=== PATIENT | male | born 1985 | race Caucasian/White ===

== ENCOUNTER 2020-11-11 06:17 | Emergency (ER) | payer OTHER, SELFPAY ==
[2020-11-11 06:20] VITALS: BP 131/94; PULSE 99; RESP 16; TEMP 36.5; O2SAT 100
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
[2020-11-11] MEDS: NAPROXEN 500 MG TABLET PO (06:47)
[2020-11-11] MEDS: CYCLOBENZAPRINE HCL 10 MG TABLET PO (06:48)
== END 2020-11-11 07:06 | disposition home or self-care (01) ==
PROVIDERS: Emergency Provider Emergency Medicine
DX: S16.1XXA Strain of muscle, fascia and tendon at neck level, initial encounter (principal); Y35.813A Legal intervention involving manhandling, suspect injured, initial encounter
CPT/HCPCS: 99283; A9270

== ENCOUNTER 2024-08-28 00:17 | Emergency (ER) | payer OTHER, MEDICAID, SELFPAY ==
[2024-08-28] VITALS (7 sets, daily range): BP systolic 110–157; BP diastolic 80–93; PULSE 70–128; RESP 16–20; TEMP 36.6; O2SAT 95–100
--- NOTE | ~2024-08-28 | CT_ITS ---
CTA chest PE protocol Ordering provider: Rudy Price MD History: 39 years Male with . SOA . Comparison: None. Technique: CT angiogram chest was performed following timed intravenous injection of contrast. Thin s lice axial images and reformatted coronal images were obtained. Three dimensional reformatted images of the chest were also obtained using a [employer] workstation. . Automated exposure control and iterati ve reconstruction technique were employed. The dose-length product was 285.35 mGy-cm. 100 ML Omnipaqu e 350 was given IV. Findings: PULMONARY ARTERIES: No pulmonary embolus. VISUALIZED THORACIC INLET: Normal. MEDIASTINUM: Aorta/coronary arteries: The thoracic aorta is normal. Heart/other: The heart is not enlarged. Lymph nodes: No mediastinal or hilar adenopathy. LUNGS: No pulmonary nodules or masses. No infiltrates or effusions. No pneumothorax. VISUALIZED UPPER ABDOMEN: the visualized upper abdomen is normal. MUSCULOSKELETAL: Soft tissues: The superficial soft tissues are normal. Bones: Normal spine. IMPRESSION: 1. No pulmonary embolism. 2. No acute cardiopulmonary pathology. Reviewed, dictated and finalized at location A.
--- NOTE | ~2024-08-28 | XR_ITS ---
XR chest 2V Ordering provider: Beth Smith MD History: 39 years Male with . SOB, CHEST PAIN. . Comparison: None. FINDINGS: MEDIASTINUM: The cardiac silhouette is not enlarged. LUNGS: No infiltrates, effusions or pneumothorax. OTHER: No free air under the diaphragm. Postoperative changes in the left clavicle. IMPRESSION: No acute cardiopulmonary pathology. Reviewed, dictated and finalized at location A.
--- OUTSIDE RECORDS SUMMARY | 2024-08-28 00:20 | XMS_ITS | Continuity of Care Document ---
Author Organization [facility] Address [address] [place] [address] Phone Care Team Providers Care Fur Buyer Name Role Phone Mushtaq Paul PT Unavailable Unavailable Procedures Procedure Date PT Evaluation Moderate Complexity Therapeutic Activities Neuromuscular Re-Ed Therapeutic Exercise Advance Directives Directive Yes / No Effective Date File Name No Information Encounters Encounter Description Practice Location Reason(s) For Visit Diagnoses Date Provider Providers Copied on Encounter [facility], [address], [place], [place], [id number], tel:[phone] [place] No Information 5 Humberto Landin. . [facility], [address], [place], [place], [id number], tel:[phone] [place] No Information 5 Humberto Landin. . Referring Provider: Lynn Hillman, [address], [place], [address]. tel:[phone] Family History Family Member Type Diagnosis Age At Onset No Information Payers Payer name Insurance type Covered libertarian ID Authorbrada evelyn(s) [facility] [id number] CI [id number] Social History Type Description Quantity Date Captured Comments Sex Male Smoking Status No Information Chief Complaint And Reason For Visit No Information Reason For Referral Reason For Referral No Information Plan Of Treatment Date Type Action Status Goal Tobacco cessation counseling completed Goal Tobacco Cessation Counseling completed Feb-28-2025 Goal Tobacco Cessation Counseling completed History Of Present Illness Encounter Date Complaint History Of Prese nt Illness No Information Functional Status Date Functional Assessmen t No Information Instructions Date Instruction Additional Infor mation No Information Assessments Type Assessment Date No Information Patient Care Teams Name Effective Dates (start - stop) Status Members No Information
--- OUTSIDE RECORDS SUMMARY | 2024-08-28 00:20 | XMS_ITS | Continuity of Care Document ---
Author Organization [facility] Address [address] [place] [address] Phone Care Team Providers Care Testing And Regulating Technician Name Role Phone Pacheco Elizabeth PA-C Unavailable Unavailable Allergies, Adverse Reactions, Alerts Substance Reaction Status Criticality No Known Allergies Active No Inform ation Medications Medication Instructions Dosage Effective Dates (start - stop) Status Comments omeprazole 20 mg capsule,delayed release take 1 capsule by oral route every day 30 minutes to 1 hour before a meal 20 MG - Active Tums 200 mg calcium (500 mg) chewable tablet - Active Procedures Procedure Date Clavicle Xray Complete Office/outpatient visit,est, mod 2022 Clavicle Xray Complete Postop followup visit Clavicle FX ORIF Clavicle FX ORIF Office/outpatient visit,new, [facility] [place] Advance Directives Directive Yes / No Effective Date File Name No Information Encounters Encounter Description Practice Location Reason(s) For Visit Diagnoses Date Provider Providers Copied on Encounter Office/outpat ient visit,est, mod [facility], [address], [place], [id number], [place] tel:[phone] [facility] Lt Clavicle (chief complaint) Pain in left armDisp fx of shaft of left clavicle, subs for fx w routn heal 3 Clara Bergman. [address], [place], [id number] , [place]. tel:[phone] Referring Provider: Pacheco Keating, [address] [place], [address] . tel:[phone] [facility], [address] [place] [address], [id number], tel:[phone] [facility] Closed displaced fracture of shaft of left clavicle with routine healing, subsequent encounterPain in left arm 2 Hoagland Pacheco. [address] [place] [address], [id number] , . tel:[phone] Referring Provider: Pacheco Keating, [address] [place], [address] . tel:[phone] [facility], [address] [place] [address], [id number], tel:[phone] [facility] No Information 2 Chino Hernandez. [address] [place] [address], [id number] , . tel:[phone] Referring Provider: Mary Pisano, [address] [place] [address], [address] . tel:[phone] [facility], [address] [place] [address], [id number], tel:[phone] [facility] No Information 2 Hoagland Pacheco. [address] [place] [address], [id number] , . tel:[phone] Referring Provider: Mary Pisano, [address] [place] [address], [address] . tel:[phone] Office/outpat ient visit,new, mod [facility], [address] [place] [address], [id number], tel:[phone] [facility] Closed displaced fracture of shaft of left clavicle, initial encounterClosed displaced fracture of shaft of left clavicl 2 Hoagland Pacheco. [address] [place] [address], [id number] , . tel:[phone] Referring Provider: Omar Ireland, [address] [place] [address] [place], [address] . tel:[phone] Family History Family Member Type Diagnosis Age At Onset No Information Payers Payer name Insurance type Covered libertarian ID Cherri rivas(s) [facility] Sources Claims Dept [id number] Social History Type Description Quantity Date Captured Comments Alcohol Use Details Unknown Caffeine Use Details Unknown Tobacco Use Status Current non-smoker Smoking Status Never smoker Non-Smoking Tobacco Use Details : No Details Available : No Details Available Sex Male Vital Signs Date / Time: Height Weight BMI Pulse Rate Blood Pressure Temperature Respiratory Rate Body Surface Area Head Circumference Head Circ. Percentile Wt./Shimon. Percentile BMI percentile Pulse Ox Inhaled Ox 8:23 AM 68.00 in 86.183 kg (190.00 lbs) 28.8 9 kg/m eter (2) Chief Complaint And Reason For Visit From encounter dated '06/03/2022 08:30'. Lt Clavicle (chief complaint) Reason For Referral Reason For Referral No Information Plan Of Treatment Date Type Action Status Future Order: Radiology Order Cl avicle Xray Complete ([id number]), Ordered on: Ordered Future Order: Radiology Order Cl avicle Xray Complete ([id number]), Ordered on: Ordered History Of Present Illness Encounter Date Complaint History Of Prese nt Illness Lt Clavicle Functional Status Date Functional Assessmen t No Information Instructions Date Instruction Additional Infor mation No Information Assessments Type Assessment Date assessment Pain in left arm assessment Disp fx of shaft of left clavicl e, subs for fx w routn heal Patient Care Teams Name Effective Dates (start - stop) Status Members No Information
--- OUTSIDE RECORDS SUMMARY | 2024-08-28 00:20 | XMS_ITS | Continuity of Care Document ---
Author Organization [facility] Address [address] [place] [address] Phone Care Team Providers Care Marshmallow Maker Name Role Phone Dakota Grace Unavailable Unavailable Procedures Procedure Date Office/outpatient Visit, Est Office/outpatient Visit, Est Eye Exam, New Patient Advance Directives Directive Yes / No Effective Date File Name No Information Encounters Encounter Description Practice Location Reason(s) For Visit Diagnoses Date Provider Providers Copied on Encounter Office/outpat ient Visit, [facility], [address], [place], [place], [id number], [place] tel:[phone] [facility] No Information 0 Krishnasamy Dakota. [address], [address], [place]. tel:[phone] Office/outpat ient Visit, Est [facility], [address], [place], [place], [id number], [place] tel:[phone] [facility] No Information 0 Krishnasamy Dakota. [address], [place], [address], [place]. tel:[phone] [facility], [address], [place], [place], [id number], [place] tel:[phone] [facility] No Information [phone] Lesly Duncan. [address] [facility] [address], [place], [address], [place]. tel:[phone] Family History Family Member Type Diagnosis Age At Onset No Information Payers Payer name Insurance type Covered democrat ID Authoriza tion(s) No Information Social History Type Description Quantity Date Captured Comments Sex Male Smoking Status No Information Chief Complaint And Reason For Visit No Information Reason For Referral Reason For Referral No Information History Of Present Illness Encounter Date Complaint History Of Prese nt Illness No Information Functional Status Date Functional Assessmen t No Information Instructions Date Instruction Additional Infor mation No Information Assessments Type Assessment Date No Information Patient Care Teams Name Effective Dates (start - stop) Status Members No Information
--- NOTE | 2024-08-28 00:23 | ECG_ITS ---
Test Date: 2024-08-28 00:28:06 Measurements Intervals [place] Rate: 116 P: 67 AK: 138 QRS: 77 QRSD: 95 T: 32 QT: 310 QTc: 432 Interpretive Statements SINUS TACHYCARDIA INCOMPLETE RIGHT BUNDLE BRANCH BLOCK BORDERLINE ST-T WAVE ABNORMALITY- INF/LAT LEADS BASELINE ARTIFACT- I, II, III, AVR, AVL, AVF ABNORMAL ECG No previous ECG available for comparison Electronically Signed On 08-28-2024 07:31:18 CDT by Mitchel Rodríguez D.O.
[2024-08-28 00:49] LABS: Basophils Absolute Auto 0.1 K/mm3 (0.0-0.1); Basophils Percent Auto 0.5 % (0.2-1.2); Eosinophils Absolute Auto 0.5 K/mm3 (0-0.3); Hematocrit 43.7 % (42.0-52.0); Hemoglobin 14.7 g/dL (14.0-18.0); Immature Granulocyte Absolute 0.02 K/mm3 (0.00-0.031); Immature Granulocyte Percent A 0.2 % (0-0.5); Lymphocytes Absolute Auto 4.23 K/mm3 (0.9-3.2); Lymphocytes Percent Auto 44.3 % (18.3-44.2); Mean Corpuscular HGB Conc 33.6 g/dl (32-36); Mean Corpuscular Hemoglobin 30.8 pg (26-34); Mean Corpuscular Volume 91.6 fl (80-100); Mean Platelet Volume 9.5 fl (7.4-10.4); Monocytes Absolute Auto 0.7 K/mm3 (0.1-0.6); Monocytes Percent Auto 7.1 % (2.6-8.5); Neutrophils Absolute Auto 4.1 K/mm3 (1.3-6.7); Neutrophils Percent Auto 42.9 % (45.5-73.1); Platelet Count Result 258 k/mm3 (150-375); Red Blood Count 4.77 M/mm3 (4.6-6.20); Red Cell Distribution Width 12.2 % (11.5-14.5); White Blood Count 9.6 K/mm3 (4.5-10.0)
[2024-08-28 01:02] LABS: Alanine Aminotransferase 14 U/L (6-50); Albumin Level 4.8 g/dL (3.5-5.1); Alkaline Phosphatase 40 U/L (38-126); Anion Gap 13 mmol/L (4-12); Aspartate Amino Transferase 23 U/L (17-59); Bilirubin,Total 0.3 mg/dL (0.2-1.3); Blood Urea Nitrogen 15 mg/dL (9-20); Calcium 9.4 mg/dL (8.4-10.2); Carbon Dioxide 26 mmol/L (22-30); Chloride 103 mmol/L (98-107); Estimated CRCL calculation 90 ml/min; Estimated Glomerular Filt Rate > 60; Glucose 110 mg/dL (65-110); Lipase 102 U/L (23-300); Partial Thromboplastin Time 27.3 Seconds (22.3-36.8); Potassium 4.2 mmol/L (3.4-5.0); Prothrombin Time 13.3 Seconds (11.1-14.7); Sodium 142 mmol/L (137-145)
[2024-08-28 01:13] LABS: Troponin I < 0.012 ng/mL (0.000-0.034)
--- NOTE | 2024-08-28 03:35 | ECG_ITS ---
Test Date: 2024-08-28 04:07:35 Measurements Intervals [place] Rate: 78 P: 38 WI: 156 QRS: 57 QRSD: 97 T: 48 QT: 354 QTc: 405 Interpretive Statements SINUS RHYTHM INCOMPLETE RIGHT BUNDLE BRANCH BLOCK DELAYED PRECORDIAL R/S TRANSITION BASELINE ARTIFACT- I, II, AVR, AVL BORDERLINE ECG Compared to ECG 08/28/2024 00:28:06 HEART RATE HAS DECREASED Electronically Signed On 08-28-2024 07:34:48 CDT by Mitchel Rodríguez D.O.
[2024-08-28 05:22] LABS: Troponin I < 0.012 ng/mL (0.000-0.034)
--- NOTE | 2024-08-28 06:16 | ECG_ITS ---
Test Date: 2024-08-28 06:20:41 Measurements Intervals [place] Rate: 72 P: 15 KS: 136 QRS: 52 QRSD: 102 T: 43 QT: 379 QTc: 416 Interpretive Statements SINUS RHYTHM INCOMPLETE RIGHT BUNDLE BRANCH BLOCK BORDERLINE ECG Compared to ECG 08/28/2024 04:07:35 NO SIGNIFICANT CHANGE Electronically Signed On 08-28-2024 07:36:02 CDT by Mitchel Rodríguez D.O.
[2024-08-28 06:41] LABS: Troponin I < 0.012 ng/mL (0.000-0.034)
--- NOTE | 2024-08-28 07:46 | ED.GENADULT ---
HPI - General Adult General Chief complaint: Chest Pain Stated complaint: chest pain, sob Time Seen by Provider: 08/28/24 07:04 History of Present Illness HPI narrative: Patient is a 39-year-old male who presents ER with chest pain. Left lower chest with tingling in left shoulder. Sudden onset prior to arrival. Reports that is not decreased is just a very mild ache. No exertional discomfort. No pain with deep breath. Reports he has been sneezing with increased irregularity which is start causing him some pain inside the back. Patient reports symptoms began tonight after coming back to a table from bathroom where he got lightheaded but did not lose consciousness or fall to the ground. No history of heart disease. Recently taken off his Seroquel. Related Data Allergies Allergy/AdvReac Type Severity Reaction Status Date / Time No Known Allergies Allergy Verified 08/28/24 00:49 Review of Systems Review of Systems: All systems reviewed & are unremarkable except as noted in HPI and below Constitutional: Constitutional: Reports no additional constitutional complaints Cardiovascular: Cardiovascular: Reports no additional cardiovascular complaints Respiratory: Respiratory: Reports no additional respiratory complaints Gastrointestinal: Gastrointestinal: Reports no additional gastrointestinal complaints [facility] Past Medical History Medical History (Updated 08/28/24 @ 09:15 by Rudy Price MD) Healthy adult male Surgical History Surgical History (Updated 09/19/21 @ 15:04 by Danita Almanzar) No history of previous surgery Social History Social History (System 09/19/21 @ 15:04 by Danita Almanzar) Substance use type: methamphetamine Exam Narrative: GENERAL: Well-appearing, well-nourished, and in no acute distress. HEAD: Normocephalic, atraumatic. ENT: Mucous membranes moist. CHEST: Clear to auscultation. No respiratory distress. No reproducible chest pain. HEART: Regular rate and rhythm. Normal peripheral pulses. ABDOMEN: Soft, nontender, nondistended. Back: No midline tenderness T/L-spine, no reproducible musculoskeletal back pain. EXTREMITIES: Normal range of motion. No edema. SKIN: Warm, dry, no rash. NEURO: Alert and oriented x3. PSYCH: Normal mood and affect. Course Course Emergency Course: Trop negative, cta chest negative, d/c. Vital Signs Vital signs: Vital Signs Temperature 97.9 F 08/28/24 00:28 Pulse Rate 128 H 08/28/24 00:28 Respiratory Rate 17 08/28/24 00:28 Blood Pressure 157/93 H 08/28/24 00:28 Pulse Oximetry 100 08/28/24 00:28 Oxygen Delivery Room Air 08/28/24 00:28 Temperature 97.9 F 08/28/24 00:28 Pulse Rate 83 08/28/24 06:23 Respiratory Rate 20 08/28/24 06:23 Blood Pressure 127/89 08/28/24 06:23 Pulse Oximetry 98 08/28/24 06:23 Oxygen Delivery Room Air 08/28/24 03:56 Medical Decision Making Vital Signs Vital Signs: Vital Signs Temperature 97.9 F 08/28/24 00:28 Pulse Rate 128 H 08/28/24 00:28 Respiratory Rate 17 08/28/24 00:28 Blood Pressure 157/93 H 08/28/24 00:28 Pulse Oximetry 100 08/28/24 00:28 Oxygen Delivery Room Air 08/28/24 00:28 Temperature 97.9 F 08/28/24 00:28 Pulse Rate 83 08/28/24 06:23 Respiratory Rate 20 08/28/24 06:23 Blood Pressure 127/89 08/28/24 06:23 Pulse Oximetry 98 08/28/24 06:23 Oxygen Delivery Room Air 08/28/24 03:56 Lab Data 08/28/24 00:35 08/28/24 00:35 Labs: Lab Results 08/28/24 08/28/24 08/28/24 Range/Units 00:35 04:46 06:14 WBC 9.6 (4.5-10.0) K/mm3 RBC 4.77 (4.6-6.20) M/mm3 Hgb 14.7 (14.0-18.0) g/dL Hct 43.7 (42.0-52.0) % MCV 91.6 (80-100) fl MCH 30.8 (26-34) pg MCHC 33.6 (32-36) g/dl RDW 12.2 (11.5-14.5) % Plt Count 258 (150-375) k/mm3 MPV 9.5 (7.4-10.4) fl Immature Gran % (Auto) 0.2 (0-0.5) % Neut % (Auto) 42.9 L (45.5-73.1) % Lymph % (Auto) 44.3 H (18.3-44.2) % [place] % (Auto) 7.1 (2.6-8.5) % Eos % (Auto) 5.0 H (0-4.4) % Baso % (Auto) 0.5 (0.2-1.2) % Lymph # (Auto) 4.23 H (0.9-3.2) K/mm3 [place] # (Auto) 0.7 H (0.1-0.6) K/mm3 Eos # (Auto) 0.5 H (0-0.3) K/mm3 Baso # (Auto) 0.1 (0.0-0.1) K/mm3 Abs Immat Gran (auto) 0.02 (0.00-0.031) K/mm3 Absolute Neuts (auto) 4.1 (1.3-6.7) K/mm3 Absolute Nucleated RBC 0.000 (0.0-0.012) K/mm3 Nucleated RBC % 0.0 (0.0-0.2) % PT 13.3 (11.1-14.7) Seconds INR 1.0 APTT 27.3 (22.3-36.8) Seconds D-Dimer 0.49 H (<0.48) ug/mL Sodium 142 (137-145) mmol/L Potassium 4.2 (3.4-5.0) mmol/L Chloride 103 (98-107) mmol/L Carbon Dioxide 26 (22-30) mmol/L Anion Gap 13 H (4-12) mmol/L BUN 15 (9-20) mg/dL Creatinine 0.92 (0.7-1.3) mg/dL Estim Creat Clear Calc 90 ml/min Estimated GFR > 60 (59 - ) Glucose 110 (65-110) mg/dL Calcium 9.4 (8.4-10.2) mg/dL Total Bilirubin 0.3 (0.2-1.3) mg/dL AST 23 (17-59) U/L ALT 14 (6-50) U/L Alkaline Phosphatase 40 (38-126) U/L Troponin I < 0.012 < 0.012 < 0.012 (0.000-0.034) ng/mL Total Protein 8.0 (6.3-8.2) g/dL Albumin 4.8 (3.5-5.1) g/dL Lipase 102 (23-300) U/L Imaging Data Radiologist's impression: ITS Impressions Chest X-Ray 08/28/24 06:31 IMPRESSION: No acute cardiopulmonary pathology. Chest CTA 08/28/24 09:02 IMPRESSION: 1. No pulmonary embolism. 2. No acute cardiopulmonary pathology. ITS Impressions Chest X-Ray 08/28/24 06:31 IMPRESSION: No acute cardiopulmonary pathology. ECG Data EKG #1: ECG completion date: 08/28/24 ECG completion time: 04:07 EKG Interpretation: normal rate (78), sinus rhythm, no ectopy, no ST changes, normal QRS, normal QT and NL axis Discharge Plan Discharge Clinical Impression: Chest wall pain Patient Disposition: Home, Self-Care Condition: Stable Instructions: Chest Wall Pain (ED) Additional Instructions: Please return to the emergency department if you develop severe and persistent chest pain, difficulty breathing, dizziness, leg swelling or if you are coughing up blood as these can be signs of a medical emergency. Please call your doctor for a follow up appointment to determine the need for further testing. Patient Language: Italian Prescriptions: New naproxen 375 mg tablet 375 mg PO BID Qty: 14 0RF No Action cyclobenzaprine 10 mg tablet 10 mg PO BID PRN (Reason: muscle spasm) Qty: 10 0RF naproxen 500 mg tablet 500 mg PO BID Qty: 20 0RF Follow-up/Referrals: PHYSICIAN NOT ON STAFF,NONSTAFF [Primary Care Provider] - 1 Week
--- OUTSIDE RECORDS SUMMARY | 2024-08-28 07:57 | XMS_ITS | Continuity of Care Document ---
Author Organization [facility] Address [address] [place] [address] Phone Care Team Providers Care Ripsaw Grader Name Role Phone Pacheco Elizabeth PA-C Unavailable [...] FX ORIF Clavicle FX ORIF Office/outpatient visit,new, [facility] [place] Advance Directives Directive Yes / No Effective Date File Name No Information Encounters Encounter Description Practice Location Reason(s) For Visit Diagnoses Date Provider Providers Copied on Encounter Office/outpat ient visit,est, mod [facility], [address] [place], [place], [id number], [place] tel:[phone] [facility] Lt Clavicle (chief complaint) Pain in left armDisp fx of shaft of left clavicle, subs for fx w routn heal 3 Clara Bergman. [address] [place], [place], [id number] , [place]. tel:[phone] Referring Provider: Pacheco Keating, [address] [place], [address] . tel:[phone] [facility], [address] [place] [address], [id number], tel:[phone] [facility] Closed displaced fracture of shaft of left clavicle with routine healing, subsequent encounterPain in left arm 2 [place] Pacheco. [address] [place] [address], [id number] , . tel:[phone] Referring Provider: Pacheco Keating, [address] [place], [address] . tel:[phone] [facility], [address] [place] [address], [id number], tel:[phone] [facility] No Information 2 Chino Hernandez. [address] [place] [address], [id number] , . tel:[phone] Referring Provider: Mary Pisano, [address] [place] [address], [address] . tel:[phone] [facility], [address] [place] [address], [id number], tel:[phone] [facility] No Information 2 Somerset Pacheco. [address] [place] [address], [id number] , . tel:[phone] Referring Provider: Mary Pisano, [address] [place] [address], [address] . tel:[phone] Office/outpat ient visit,new, mod [facility], [address] [place] [address], [id number], tel:[phone] [facility] Closed displaced fracture of shaft of left clavicle, initial encounterClosed displaced fracture of shaft of left clavicl 2 Somerset Pacheco. [address] [place] [address], [id number] , . tel:[phone] Referring Provider: Omar Ireland, [address] [place] [address] [place], [address] . tel:[phone] Family History Family Member Type Diagnosis Age At Onset No Information Payers Payer name Insurance type Covered green party ID Cherri rivas[facility]s) [facility] Sources [facility] Dept [id number] Social History Type Description Quantity Date Captured [...] Order: Radiology Order Cl avicle Xray Complete ([id number]), Ordered on: Ordered Future Order: Radiology Order Cl avicle Xray Complete ([id number]), Ordered on: Ordered History Of Present Illness [...]
--- OUTSIDE RECORDS SUMMARY | 2024-08-28 07:57 | XMS_ITS | Continuity of Care Document ---
Author Organization [facility] Address [address] [place] [address] Phone Care Team Providers Care Weekday Babysitter Name Role Phone Mushtaq Paul PT Unavailable Unavailable Procedures Procedure Date PT Evaluation Moderate Complexity Therapeutic Activities Neuromuscular Re-Ed Therapeutic Exercise Advance Directives Directive Yes / No Effective Date File Name No Information Encounters Encounter Description Practice Location Reason(s) For Visit Diagnoses Date Provider Providers Copied on Encounter [facility], [address], [place], [place], [id number], tel:[phone] Amelia No Information 5 Humberto Landin. . [facility], [address], [place], [place], [id number], tel:[phone] Amelia No Information 5 Humberto Landin. . Referring Provider: Lynn Hillman, [address], [place], [address]. tel:[phone] Family History Family Member Type Diagnosis Age At Onset No Information Payers Payer name Insurance type Covered green party ID Authorbrada evelyn(s) [facility] [id number] CI [id number] Social History Type Description Quantity Date Captured [...]
--- OUTSIDE RECORDS SUMMARY | 2024-08-28 07:57 | XMS_ITS | Clinical Summary ---
Author Organization [facility] Address [address] [place] [address] Phone Care Team Providers Care Superintendent Power Name Role Phone Provider, None Primary Care Provider Unavailabl e Allergies No known active allergies Medications sulfamethoxazole- trimethoprim DS (BACTRIM DS, SEPTRA DS) 800-160 MG Tablet 01/04/2018 A ctive acyclovir (ZOVIRAX) 800 MG TabletIndications :Herpes zoster without complication Take 1 Tab by mouth 2 times daily. 20 Tab 01/23/2018 Active Active Problems No known active problems Family History Medical History Relation Name Comments Skin Cancer Father No Known Problems Mother Relation Name Status Comments Father Alive Mother Social History Tobacco Use Types Packs/Day Years Used Date Smoking Tobacco: Every Day Smokeless Tobacco: Never Sex and Gender Information Value Date Recorded Sex Assigned at Not on file Legal Sex Male 1:54 PM CDT Gender Identity Not on file Sexual Orientation Not on file Last Filed Vital Signs Vital Sign Reading Time Taken Comments Blood Pressure 139/73 01/23/2018 2:02 PM CDT Pulse - - Temperature 36.8 C (98.2 F) 01/23/2018 2:02 PM CDT Respiratory Rate 18 01/23/2018 2:02 PM CDT Oxygen Saturation 98% 01/23/2018 2:02 PM CDT Inhaled Oxygen Concentration - - Weight 73.5 kg (162 lb) 01/23/2018 2:02 PM CDT Height 170.2 cm (5' 7 ) 01/23/2018 2:02 PM CDT Body Mass Index 25.37 01/23/2018 2:02 PM CDT Plan of Treatment Health Maintenance Due Date Last Done Comments Hepatitis C Virus (HCV) Screening 1987 TdaP Immunization 1987 Hepatitis B Immunization (1 of 3 - 19+ 3-dose series) 2006 Influenza Immunization (#1) 2024 SARS-COV-2 Immunization (2 - 2023- season) 2024 01/17/2021 Respiratory Syncytial Virus (RSV) Immunization (Adult) (1 - 1-dose 75+ series) 2062 Meningococcal Immunization (ACWY) Aged Out No longer eligible based on patient's age to complete this topic Pneumococcal Immunization Combined Aged Out No longer eligible based on patient's age to complete this topic Rotavirus Immunization Aged Out No lo nger eligible based on patient's age to complete this topic Care Teams Superintendent Power Relationship Specialty Start Date End Date Provider, None [place] PCP - General 01/23/18
--- OUTSIDE RECORDS SUMMARY | 2024-08-28 07:57 | XMS_ITS | Continuity of Care Document ---
Author Organization [facility] Address [address] [place] [address] Phone Care Team Providers Care Broadloom Weaver Name Role Phone Dakota Grace Unavailable Unavailable Procedures Procedure Date Office/outpatient Visit, Est Office/outpatient Visit, Est Eye Exam, New Patient Advance Directives Directive Yes / No Effective Date File Name No Information Encounters Encounter Description Practice Location Reason(s) For Visit Diagnoses Date Provider Providers Copied on Encounter Office/outpat ient Visit, [facility], [address], [place], [place], [id number], [place] tel:[phone] [facility] No Information 0 Krishnasamy Dakota. [address], [address], [place]. tel:[phone] Office/outpat ient Visit, Est [facility], [address], [place], [place], [id number], [place] tel:[phone] [facility] No Information 0 Krishnasamy Dakota. [address], [place], [address], [place]. tel:[phone] [facility], [address], [place], [place], [id number], [place] tel:[phone] [facility] No Information 5-201 0 Lesly Duncan. [address] [facility] [address], [place], [address], [place]. tel:[phone] Family History Family Member Type Diagnosis Age [...]
[2024-08-28 08:29] LABS: D Dimer 0.49 ug/mL (<0.48)
== END 2024-08-28 09:25 | disposition home or self-care (01) ==
PROVIDERS: Student in an Organized Health Care Education/Training Program; Emergency Provider Emergency Medicine
DX: R07.89 Other chest pain (principal); I45.10 Unspecified right bundle-branch block; R00.0 Tachycardia, unspecified; R94.31 Abnormal electrocardiogram [ECG] [EKG]
CPT/HCPCS: 36415; 71046; 71275; 80053; 83690; 84484; 85025; 85380; 85610; 85730; 93005; 99284; Q9967